=== PATIENT | male | born 1965 | race African-American/Black ===

== ENCOUNTER → 2017-05-10 | Outpatient (REF) | payer OTHER ==
[2017-05-10 13:57] LABS: BACTERIA, URINE NONE SEEN; HYALINE CAST, URINE NONE SEEN /lpf (0-1); MICROSCOPIC EXAM PERFORMED; PERCENT SATURATION 57.3 % (19.7-50.0); RBC, URINE NONE SEEN /hpf (0-3); SQUAMOUS EPITHELIAL CELL URINE 0 /hpf (SMALL AMT); WBC, URINE NONE SEEN /hpf (0-3)
[2017-05-10 19:04] LABS: FOLATE 23.1 NG/ML (>5.4)
== END ==
LOC: M LAB REF 12:58
PROVIDERS: ATTEND Internal Medicine Nephrology
DX: R80.9 Proteinuria, unspecified (principal); D64.9 Anemia, unspecified

== ENCOUNTER 2019-11-24 13:10 | Emergency (ER) | payer OTHER ==
[~2019-11-24] VITALS: Ht 175.3 cm; Wt 110.6 kg
[2019-11-24] MEDS ORDERED: MELO15TA28 (13:20)
[2019-11-24] MEDS ORDERED: IBUPROFEN 800 (13:20)
[2019-11-24] MEDS ORDERED: VITA50005 (13:20)
--- NOTE | 2019-11-24 14:34 | REP ---
Clinical: Left inguinal hernia. Technique: Real time rodriguez scale ultrasound examination using linear high frequency transducer. Findings: A reducible fat containing right inguinal hernia is appreciated measuring 12 mm maximal diameter. No obvious left inguinal hernia. Impression: Small fat containing reducible right inguinal hernia. Electronically Signed by Juan Hudson MD 11/24/2019 02:25 P
[2019-11-24 15:12] VITALS: BP 150/80
== END 2019-11-24 15:20 | disposition home or self-care (01) ==
LOC: M ED 13:10
DX: K40.90 Unilateral inguinal hernia, without obstruction or gangrene, not specified as recurrent (principal); Z79.899 Other long term (current) drug therapy; Z88.0 Allergy status to penicillin

== ENCOUNTER → 2021-01-06 | Outpatient (CLI) | payer OTHER ==
[~2021-01-06] MED LIST: IBUPROFEN 800; MELO15TA28; VITA50005
--- NOTE | 2021-01-06 14:14 | PFTRPT ---
Height: 69.00 Inches Weight: 222.00 Lbs BSA: 2.16 Diagnosis: R06.00 DATE: 01/06/2021 ORDERING PHYSICIAN: GABINO Kingsley Pre and post bronchodilator studies have excellent technical quality. Forced vital capacity is normal. FEV1 is in proportion. Obstructive index is therefore normal. Expiratory limit of the flow-volume loop is normal. No significant bronchodilator response is identified. Total lung capacity is normal. Residual volume does suggest a degree of air trapping. Diffusing capacity is normal. Hemoglobin is acceptable at 16.2. Airway resistance and conductance are normal. IMPRESSION: Cannot rule out a degree of air trapping. Please correlate clinically. MTDD
== END ==
LOC: M CARPUL 13:38
PROVIDERS: ATTEND Physician Assistant
DX: R06.00 Dyspnea, unspecified (principal)

== ENCOUNTER → 2021-03-08 | Outpatient (CLI) | payer OTHER ==
--- NOTE | 2021-03-08 11:00 | REP ---
INDICATION: PERSONAL HX OF NICOTINE DEPENDENCE COMPARISON: None. TECHNIQUE: Axial noncontrast images from the thoracic inlet to the upper abdomen using low-dose lung screening technique (LDCT). FINDINGS: Lung johnson are well aerated and relatively clear. Few 2-3 mm noncalcified perifissural densities are noted. No further consolidation, suspicious nodule or mass. Tracheobronchial tree is patent. No effusion or pneumothorax. IMPRESSION: Lung-RADS category 2. Management recommendations include annual low-dose CT surveillance. <Electronically signed by Juan Hudson > 03/08/21 105
== END ==
LOC: M RAD 10:13
PROVIDERS: ATTEND Physician Assistant
DX: Z12.2 Encounter for screening for malignant neoplasm of respiratory organs (principal); Z87.891 Personal history of nicotine dependence; J98.4 Other disorders of lung

== ENCOUNTER → 2021-04-07 | Outpatient (CLI) | payer OTHER ==
[~2021-04-07] MED LIST changes: +ERGO500029; +METHACHOLINE KIT (J7674) INH ONE; -VITA50005
--- NOTE | 2021-04-07 12:42 | PFTRPT ---
Height: 69.00 Inches Weight: 225.00 Lbs BSA: 2.17 Diagnosis: R06.00 DATE: 04/07/2021 ORDERED BY: GABINO Kingsley QUALITY: Study of excellent technical quality. PROCEDURE: Under protocol, methacholine was administered. At a dose of 2.5 mg or 13.875 CDUs, a 22% decline in the FEV1 was noted. PC of 1.55 is significant. Flow rates did return to baseline post bronchodilator administration. IMPRESSION: Positive methacholine challenge study. MTDD
== END ==
LOC: M CARPUL 03-03 09:43
PROVIDERS: ATTEND Physician Assistant
DX: R06.00 Dyspnea, unspecified (principal)
CPT/HCPCS: 94070; 95070; J7674

== ENCOUNTER → 2022-04-06 | Outpatient (CLI) | payer OTHER ==
[~2022-04-06] MED LIST changes: -METHACHOLINE KIT (J7674) INH ONE
== END ==
LOC: M RAD 16:03
PROVIDERS: ATTEND Physician Assistant
DX: Z87.891 Personal history of nicotine dependence (principal)

== ENCOUNTER → 2022-06-14 | Outpatient (CLI) | payer OTHER | LOC: M CARPUL 13:30 | PROVIDERS: ATTEND Internal Medicine Cardiovascular Disease | DX: R07.9 Chest pain, unspecified (principal); I20.0 Unstable angina; I08.3 Combined rheumatic disorders of mitral, aortic and tricuspid valves ==

== ENCOUNTER → 2023-04-17 | Outpatient (CLI) | payer OTHER | LOC: M RAD 12:21 | PROVIDERS: ATTEND Physician Assistant | DX: Z87.891 Personal history of nicotine dependence (principal) ==

== ENCOUNTER 2023-10-10 14:08 | Emergency (ER) | payer OTHER ==
[~2023-10-10] VITALS: Ht 175.3 cm; Wt 106.8 kg
[~2023-10-10 14:08] MED LIST changes: -ERGO500029; +ERGO500029 PO
[2023-10-10] MEDS ORDERED: PERCOCET 5MG/325MG TAB PO ONE ×2 (17:20→22:20)
[2023-10-10] MEDS ORDERED: OXYCODONE/APAP 5MG/325MG(HOME DOSE PACK) PO ONE (21:35)
[2023-10-10] MEDS ORDERED: LOSA50TA28 PO (23:44)
[2023-10-10] MEDS ORDERED: CETI-24 PO (23:44)
[2023-10-10] MEDS ORDERED: ATOR80TA59 PO (23:44)
[2023-10-10] MEDS ORDERED: VENL50TA2 PO (23:44)
[2023-10-10] MEDS ORDERED: METO1TAB7 PO (23:44)
[2023-10-10] MEDS ORDERED: ECOT81TA5 PO (23:44)
[2023-10-10] MEDS ORDERED: AMLO1TAB24 PO (23:44)
[2023-10-10] MEDS ORDERED: RANO500T2 PO (23:44)
[2023-10-10] MEDS ORDERED: ATORVASTATIN 20 MG TAB PO ONE (23:55)
[2023-10-10] MEDS ORDERED: VENLAFAXINE 25 MG TAB PO ONE (23:55)
[2023-10-10] MEDS ORDERED: amLODIPine 5 MG TAB PO ONE (23:55)
[2023-10-10] MEDS ORDERED: METOPROLOL SUCC (TopROL XL) 50MG **XL** TAB PO ONE (23:55)
[2023-10-11 00:29] VITALS: BP 129/77
[2023-10-11 08:10] VITALS: BP 144/79; TEMP 98.2; O2SAT 100
[2023-10-12] MEDS ORDERED: SYMB16INH INH (09:44)
[2023-10-12] MEDS ORDERED: ALBU8.5H INH (09:44)
[2023-10-12] MEDS ORDERED: NITR0.4S14 SL (09:44)
== END 2023-10-11 09:08 | disposition home or self-care (01) ==
LOC: M ED 14:08
DX: S86.811A Strain of other muscle(s) and tendon(s) at lower leg level, right leg, initial encounter (principal); W01.0XXA Fall on same level from slipping, tripping and stumbling without subsequent striking against object, initial encounter; Z88.0 Allergy status to penicillin; Z79.52 Long term (current) use of systemic steroids; Z79.02 Long term (current) use of antithrombotics/antiplatelets; Z79.82 Long term (current) use of aspirin; Z79.899 Other long term (current) drug therapy; Y92.009 Unspecified place in unspecified non-institutional (private) residence as the place of occurrence of the external cause; Y93.89 Activity, other specified; Y99.9 Unspecified external cause status

== ENCOUNTER 2023-10-15 06:50 | Observation (INO) | payer OTHER ==
[~2023-10-15] VITALS: Ht 175.3 cm; Wt 115.0 kg
[~2023-10-15 06:50] MED LIST changes: +ALBU8.5H INH; +AMLO1TAB24 PO; +ATOR80TA59 PO; +CETI-24 PO; +ECOT81TA5 PO; +LOSA50TA28 PO; +METO1TAB7 PO; +NITR0.4S14 SL; +RANO500T2 PO; +SYMB16INH INH; +VANCOMYCIN HCL 1,000 MG, VIAL MATE ADAPTER 1 EACH in D5W 250 ML IV ONE; +VENL50TA2 PO
[2023-10-15] MEDS ORDERED: LR 1,000 ML IV SCH ×3 (07:35→11:45)
[2023-10-15] MEDS ORDERED: propofoL 200 MG/20 ML VIAL As Ordered ONE (08:42)
[2023-10-15] MEDS ORDERED: MIDAZOLAM INJ 2MG/2ML VIAL As Ordered ONE (08:42)
[2023-10-15] MEDS ORDERED: KETOROLAC 60MG 2ML VIAL As Ordered ONE (08:42)
[2023-10-15] MEDS ORDERED: LIDOCAINE 2% 100MG/5ML SDV (FOR ANES.) As Ordered ONE (08:42)
[2023-10-15] MEDS ORDERED: fentaNYL 250 MCG/5 ML INJECTION As Ordered ONE (08:42)
[2023-10-15] MEDS ORDERED: ONDANSETRON 4MG 2ML VIAL As Ordered ONE (08:42)
[2023-10-15] MEDS: ASCORBIC ACID 500 MG TAB PO SCH (09:00)
[2023-10-15] MEDS: FERROUS SULFATE 325MG TAB PO SCH (09:00)
[2023-10-15] MEDS ORDERED: ROCURONIUM BROMIDE 50MG/5ML VIAL As Ordered ONE ×2 (09:24→10:28)
[2023-10-15] MEDS ORDERED: dexmedeTOMIDine (4MCG/ML)200MCG/50ML BTL (PRECEDEX) As Ordered ONE (09:24)
[2023-10-15] MEDS ORDERED: ACETAMINOPHEN 1000MG 100ML IV BAG As Ordered ONE (10:18)
[2023-10-15] MEDS ORDERED: SUGAMMADEX SODIUM 500 MG/5 ML VIAL (BRIDION) As Ordered ONE (10:31)
[2023-10-15] MEDS ORDERED: ePHEDrine SULFATE 25 MG/5 ML(5MG/ML) SYRINGE As Ordered ONE (10:37)
[2023-10-15] MEDS ORDERED: ONDANSETRON 4MG 2ML VIAL IV PRN ×2 (11:15→11:45)
[2023-10-15] MEDS ORDERED: oxyCODONE 5MG TAB PO PRN (11:15)
[2023-10-15] MEDS ORDERED: HYDROMORPHONE HCL 0.5 MG/ 0.5 ML SYRINGE IV PRN (11:15)
[2023-10-15] MEDS ORDERED: fentaNYL 100 MCG/2 ML INJECTION IV PRN (11:15)
[2023-10-15] MEDS ORDERED: SENNA 8.6 MG TAB (SENOKOT) PO PRN (11:45)
[2023-10-15] MEDS ORDERED: ALBUTEROL 90 MCG/ACT 8GM HFA INHALER INH PRN (12:05)
[2023-10-15] MEDS: oxyCODONE 5MG TAB PO PRN ×4 (13:02→22:19)
[2023-10-15 14:40] VITALS: BP 165/90; TEMP 97.5; O2SAT 96
[2023-10-15 15:10] VITALS: BP 159/87; TEMP 97.9; O2SAT 96
[2023-10-15] MEDS ORDERED: MED REC IN PROGRESS XX SCH (15:25)
[2023-10-15 15:40] VITALS: BP 155/86; TEMP 97.9; O2SAT 94
[2023-10-15] MEDS ORDERED: AMLO1TAB25 PO (15:47)
[2023-10-15] MEDS ORDERED: IBUP200T46 PO (15:47)
[2023-10-15] MEDS ORDERED: HOME MED LIST COMPLETE! XX SCH (15:55)
[2023-10-15 16:40] VITALS: BP 151/67; TEMP 97.9; O2SAT 94
[2023-10-15 17:40] VITALS: BP 148/67; TEMP 97.9; O2SAT 94
[2023-10-15] MEDS: ACETAMINOPHEN TAB 650MG DOSE (2X325MG) PO SCH (18:24)
[2023-10-15 18:40] VITALS: BP 104/68; TEMP 97; O2SAT 97
[2023-10-15] MEDS: SYMBICORT 160/4.5MCG INHALER 6GM INH SCH (20:01)
[2023-10-15] MEDS: VANCOMYCIN HCL 1,000 MG, VIAL MATE ADAPTER 1 EACH in D5W 250 ML IV SCH (21:00)
[2023-10-15] MEDS: DOCUSATE SODIUM 100MG CAPSULE PO SCH (21:01)
[2023-10-15] MEDS: ATORVASTATIN 20 MG TAB PO SCH (21:01)
[2023-10-15] MEDS: ASPIRIN 81MG ENTERIC TABLET PO SCH (21:02)
[2023-10-15] MEDS: amLODIPine 5 MG TAB PO SCH (21:02)
[2023-10-15] MEDS: METOPROLOL SUCC (TopROL XL) 50MG **XL** TAB PO SCH (21:03)
[2023-10-15] MEDS: VENLAFAXINE 25 MG TAB PO SCH (22:18)
[2023-10-16] VITALS: BP 123/65; TEMP 98.1; O2SAT 96
[2023-10-16] MEDS: ACETAMINOPHEN TAB 650MG DOSE (2X325MG) PO SCH ×4 (00:38→18:02)
[2023-10-16 04:00] VITALS: BP 124/64; TEMP 97; O2SAT 96
[2023-10-16] MEDS: oxyCODONE 5MG TAB PO PRN ×4 (04:46→18:01)
[2023-10-16] MEDS ORDERED: ASPIRIN 81MG ENTERIC TABLET PO SCH (07:00)
[2023-10-16 07:11] LABS: HEMOGLOBIN 11.6 g/dl (13.5-17.5); MEAN CORPUSCULAR HEMOGLOBIN 32.8 pg (27.0-33.0); MEAN CORPUSCULAR HGB CONC 33.1 g/dl (32.0-36.5); MEAN CORPUSCULAR VOLUME 98.9 fl (80.0-96.0); PLATELET COUNT, AUTOMATED 194 10^3/uL (150-450); RED BLOOD COUNT 3.54 10^6/uL (4.30-6.10); WHITE BLOOD COUNT 10.7 10^3/uL (4.0-10.0)
[2023-10-16 07:16] LABS: INR 1.03; PROTHROMBIN TIME 13.2 SECONDS (12.5-14.5)
[2023-10-16 07:28] LABS: ALBUMIN 3.8 G/DL (3.2-5.2); ALKALINE PHOSPHATASE 80 U/L (46-116); ALT/SGPT 31 U/L (7.0-40); AST/SGOT 17 U/L (<34); BILIRUBIN,TOTAL 0.6 MG/DL (0.3-1.2); BLOOD UREA NITROGEN 12 MG/DL (9-23); CARBON DIOXIDE LEVEL 26 MMOL/L (20-31); CHLORIDE LEVEL 106 MMOL/L (98-107); CREATININE FOR GFR 0.77 MG/DL (0.70-1.30); GLOMERULAR FILTRATION RATE > 60.0 (>56); GLUCOSE, FASTING 111 MG/DL (60-100); PHOSPHORUS LEVEL 3.3 MG/DL (2.5-4.9); POTASSIUM SERUM 4.2 MMOL/L (3.5-5.1); SODIUM LEVEL 138 MMOL/L (136-145); TOTAL PROTEIN 6.4 G/DL (5.7-8.2)
[2023-10-16 08:00] VITALS: BP 140/90; TEMP 97.1; O2SAT 98
[2023-10-16] MEDS: SYMBICORT 160/4.5MCG INHALER 6GM INH SCH ×2 (08:14→20:39)
[2023-10-16] MEDS: LOSARTAN 50MG TABLET PO SCH (08:48)
[2023-10-16] MEDS: CETIRIZINE (ZyrTEC) 10 MG TAB PO SCH (08:48)
[2023-10-16] MEDS: ASCORBIC ACID 500 MG TAB PO SCH (08:48)
[2023-10-16] MEDS: FERROUS SULFATE 325MG TAB PO SCH (08:48)
[2023-10-16] MEDS: ASPIRIN 81MG ENTERIC TABLET PO SCH ×2 (08:48→20:58)
[2023-10-16] MEDS: DOCUSATE SODIUM 100MG CAPSULE PO SCH ×2 (08:48→20:58)
[2023-10-16] MEDS: VANCOMYCIN HCL 1,000 MG, VIAL MATE ADAPTER 1 EACH in D5W 250 ML IV SCH (08:49)
[2023-10-16] MEDS ORDERED: ASPI81TAEC PO (09:05)
[2023-10-16] MEDS ORDERED: CLIN150C17 PO (09:05)
[2023-10-16] MEDS ORDERED: OXYC-517 PO (09:05)
[2023-10-16] MEDS ORDERED: NITROGLYCERIN 0.4MG SUBL TABLET SL PRN ×2 (11:55→15:15)
[2023-10-16 12:31] LABS: CK-MB VALUE MASS 3.6 NG/ML (<3.6)
[2023-10-16 12:33] LABS: MB/CK RELATIVE INDEX 0.62 (< OR =4)
[2023-10-16 12:40] VITALS: BP 142/76; TEMP 98.6; O2SAT 100
[2023-10-16 20:56] VITALS: BP 137/70; TEMP 98.2; O2SAT 98
[2023-10-16 20:58] VITALS: BP 137/70
[2023-10-16] MEDS: CYCLOBENZAPRINE 10MG TABLET PO PRN (20:58)
[2023-10-16] MEDS: amLODIPine 5 MG TAB PO SCH (20:58)
[2023-10-16] MEDS: METOPROLOL SUCC (TopROL XL) 50MG **XL** TAB PO SCH (20:58)
[2023-10-16] MEDS: ATORVASTATIN 20 MG TAB PO SCH (20:58)
[2023-10-16] MEDS: VENLAFAXINE 25 MG TAB PO SCH (20:59)
[2023-10-17] MEDS: ACETAMINOPHEN TAB 650MG DOSE (2X325MG) PO SCH ×2 (00:06→05:18)
[2023-10-17 05:21] VITALS: BP 150/89; TEMP 98.2; O2SAT 95
[2023-10-17 06:40] LABS: HEMATOCRIT 36.4 % (42.0-52.0); HEMOGLOBIN 12.1 g/dl (13.5-17.5); MEAN CORPUSCULAR HEMOGLOBIN 32.9 pg (27.0-33.0); MEAN CORPUSCULAR HGB CONC 33.2 g/dl (32.0-36.5); MEAN CORPUSCULAR VOLUME 98.9 fl (80.0-96.0); PLATELET COUNT, AUTOMATED 215 10^3/uL (150-450); RED BLOOD COUNT 3.68 10^6/uL (4.30-6.10); WHITE BLOOD COUNT 8.7 10^3/uL (4.0-10.0)
[2023-10-17 06:59] LABS: INR 1.07; PROTHROMBIN TIME 13.6 SECONDS (12.5-14.5)
[2023-10-17 07:04] LABS: ALBUMIN 3.9 G/DL (3.2-5.2); ALKALINE PHOSPHATASE 83 U/L (46-116); ALT/SGPT 32 U/L (7.0-40); AST/SGOT 20 U/L (<34); BILIRUBIN,TOTAL 1.1 MG/DL (0.3-1.2); BLOOD UREA NITROGEN 10 MG/DL (9-23); CALCIUM LEVEL 8.7 MG/DL (8.5-10.1); CARBON DIOXIDE LEVEL 28 MMOL/L (20-31); CHLORIDE LEVEL 105 MMOL/L (98-107); CREATININE FOR GFR 0.81 MG/DL (0.70-1.30); GLOMERULAR FILTRATION RATE > 60.0 (>56); GLUCOSE, FASTING 97 MG/DL (60-100); PHOSPHORUS LEVEL 3.4 MG/DL (2.5-4.9); POTASSIUM SERUM 3.9 MMOL/L (3.5-5.1); SODIUM LEVEL 139 MMOL/L (136-145); TOTAL PROTEIN 6.7 G/DL (5.7-8.2)
[2023-10-17] MEDS: SYMBICORT 160/4.5MCG INHALER 6GM INH SCH (07:13)
[2023-10-17] MEDS: DOCUSATE SODIUM 100MG CAPSULE PO SCH (08:49)
[2023-10-17] MEDS: CYCLOBENZAPRINE 10MG TABLET PO PRN (08:49)
[2023-10-17] MEDS: CETIRIZINE (ZyrTEC) 10 MG TAB PO SCH (08:49)
[2023-10-17] MEDS: ASCORBIC ACID 500 MG TAB PO SCH (08:49)
[2023-10-17] MEDS: ASPIRIN 81MG ENTERIC TABLET PO SCH (08:49)
[2023-10-17] MEDS: LOSARTAN 50MG TABLET PO SCH (08:49)
[2023-10-17] MEDS: FERROUS SULFATE 325MG TAB PO SCH (09:00)
== END 2023-10-17 09:10 | disposition home or self-care (01) ==
LOC: M SDC 06:50 → M RR INP 06:51 → M MS5PR 14:40
PROVIDERS: ADMIT Orthopaedic Surgery; ATTEND Orthopaedic Surgery
DX: S86.812A Strain of other muscle(s) and tendon(s) at lower leg level, left leg, initial encounter (principal); W01.0XXA Fall on same level from slipping, tripping and stumbling without subsequent striking against object, initial encounter; Y92.89 Other specified places as the place of occurrence of the external cause; Y93.9 Activity, unspecified; Y99.9 Unspecified external cause status; I10 Essential (primary) hypertension; E78.5 Hyperlipidemia, unspecified; J45.909 Unspecified asthma, uncomplicated; J30.9 Allergic rhinitis, unspecified; E55.9 Vitamin D deficiency, unspecified; Z79.51 Long term (current) use of inhaled steroids; Z79.899 Other long term (current) drug therapy; Z79.82 Long term (current) use of aspirin; Z98.61 Coronary angioplasty status; Z88.0 Allergy status to penicillin
CPT/HCPCS: 27380; 36415; 73560; 76000; 80053; 80069; 82550; 82553; 85027; 85610; 93005; 94640; 96365; 96366; 97116; 97161; 97165; 97530; J0131; J0665; J1100; J1170; J1885; J2250; J2405; J3010; J3370

== ENCOUNTER → 2023-10-30 | Outpatient (CLI) | payer OTHER ==
[~2023-10-30] MED LIST changes: +AMLO1TAB25 PO; +ASPI81TAEC PO; +CLIN150C17 PO; +IBUP200T46 PO; +OXYC-517 PO; -VANCOMYCIN HCL 1,000 MG, VIAL MATE ADAPTER 1 EACH in D5W 250 ML IV ONE
== END ==
LOC: M SOG 07:53
PROVIDERS: ATTEND Orthopaedic Surgery
DX: Z47.89 Encounter for other orthopedic aftercare (principal); Z98.890 Other specified postprocedural states

== ENCOUNTER → 2024-04-18 | Outpatient (CLI) | payer OTHER | LOC: M SOG 07:53 | PROVIDERS: ATTEND Orthopaedic Surgery | DX: M65.261 Calcific tendinitis, right lower leg (principal) ==

== ENCOUNTER → 2024-05-28 | Outpatient (CLI) | payer OTHER | LOC: M RAD 15:08 | PROVIDERS: ATTEND Physician Assistant | DX: R91.8 Other nonspecific abnormal finding of lung field (principal) ==

== ENCOUNTER → 2024-11-14 | Outpatient (CLI) | payer OTHER | LOC: M SOG 09:52 | PROVIDERS: ATTEND Orthopaedic Surgery | DX: M25.522 Pain in left elbow (principal); M25.512 Pain in left shoulder ==

== ENCOUNTER → 2024-11-28 | Outpatient (CLI) | payer OTHER | LOC: M SOG 15:04 | PROVIDERS: ATTEND Orthopaedic Surgery Hand Surgery | DX: M25.532 Pain in left wrist (principal) ==

== ENCOUNTER → 2025-06-11 | Outpatient (CLI) | payer OTHER | LOC: M RAD 07:13 | PROVIDERS: ATTEND Physician Assistant | DX: Z12.2 Encounter for screening for malignant neoplasm of respiratory organs (principal); Z87.891 Personal history of nicotine dependence; J43.9 Emphysema, unspecified; Z95.5 Presence of coronary angioplasty implant and graft ==

== ENCOUNTER → 2025-07-29 | Outpatient (REF) | payer OTHER ==
[2025-07-29 18:25] LABS: BASO # 0.0 10^3/uL (0.0-0.2); BASO % 0.2 % (0.0-1.0); EOS # 0.1 10^3/uL (0.0-0.5); EOS % 1.0 % (0.0-3.0); LYMPH # 1.9 10^3/uL (1.5-5.0); LYMPH % 37.9 % (24.0-44.0); MONO # 0.6 10^3/uL (0.0-0.8); MONO % 12.6 % (2.0-8.0); NEUTROPHILS # 2.4 10^3/uL (1.5-8.5); NEUTROPHILS % 48.1 % (36.0-66.0); PLATELET COUNT, AUTOMATED 215 10^3/uL (150-450)
[2025-07-29 18:29] LABS: ALT/SGPT 57.0 U/L (7.0-40); AST/SGOT 28.0 U/L (<34); CALCIUM LEVEL 9.2 MG/DL (8.3-10.6); CARBON DIOXIDE LEVEL 28.0 MMOL/L (20-31); CHLORIDE LEVEL 106.0 MMOL/L (98-107); CREATININE FOR GFR 1.03 MG/DL (0.70-1.30); FREE T4 1.09 NG/DL (0.89-1.76); GLOMERULAR FILTRATION RATE 83.2 (>49); IRON (FE) 90.0 UG/DL (65-175); PERCENT SATURATION 38.3 % (19.7-50.0); POTASSIUM SERUM 4.0 MMOL/L (3.5-5.1); SODIUM LEVEL 143.0 MMOL/L (136-145)
[2025-07-29 18:32] LABS: VITAMIN B12 LEVEL 633.0 PG/ML (211-911)
== END ==
LOC: M SFHCLERA 14:58
PROVIDERS: ATTEND Family Medicine
DX: R41.3 Other amnesia (principal); D64.9 Anemia, unspecified

== ENCOUNTER 2025-10-06 11:07 | Day surgery (SDC) | payer OTHER ==
[~2025-10-06] VITALS: Ht 175.3 cm; Wt 112.9 kg
[~2025-10-06 11:07] MED LIST changes: +LIDOCAINE 2% 100 MG/5 ML SDV (FOR ANES.) As Ordered ONE
[2025-10-06] MEDS ORDERED: ISOS-18 PO (13:05)
[2025-10-06] MEDS ORDERED: LANS30CA PO (13:05)
[2025-10-06 14:08] VITALS: BP 128/72; O2SAT 99
== END 2025-10-06 14:17 | disposition home or self-care (01) ==
LOC: M OPP 11:07
PROVIDERS: ATTEND Internal Medicine Gastroenterology
DX: R07.89 Other chest pain (principal); I25.10 Atherosclerotic heart disease of native coronary artery without angina pectoris; I10 Essential (primary) hypertension; E78.00 Pure hypercholesterolemia, unspecified; K21.9 Gastro-esophageal reflux disease without esophagitis; J45.909 Unspecified asthma, uncomplicated; Z79.899 Other long term (current) drug therapy; Z79.82 Long term (current) use of aspirin; Z79.51 Long term (current) use of inhaled steroids; Z86.73 Personal history of transient ischemic attack (TIA), and cerebral infarction without residual deficits; Z95.5 Presence of coronary angioplasty implant and graft; Z88.0 Allergy status to penicillin
CPT/HCPCS: 43235; J3010